=== PATIENT | female | born 2000 | race Caucasian/White ===

== ENCOUNTER 2020-02-06 17:51 | Emergency (ER) | payer OTHER, SELFPAY ==
[2020-02-06 18:47] LABS: Urine Blood NEGATIVE (NEG); Urine Glucose NEGATIVE (NEG); Urine Protein NEGATIVE (NEG); Urine Specific Gravity >1.030 (1.005-1.030)
[2020-02-06] MEDS ORDERED: NA CHLORIDE 0.9% 1,000 ML ONE (18:48)
[2020-02-06] MEDS ORDERED: CEFTRIAXONE/SWI 1gm 1 GM/10 ML SYR ONE (18:48)
[2020-02-06 18:49] LABS: Absolute Lymphocytes (CBC) 3.1 K/uL (0.7-4.9); Basophils % 0.7 % (0-1.3); Hematocrit 40.4 % (36.0-45.0); MPV 7.8 fL (7.6-11.3); RBC Red Blood Cell Count 4.72 M/uL (3.86-4.86)
[2020-02-06 18:57] LABS: Potassium 3.8 mmol/L (3.5-5.1)
--- NOTE | 2020-02-06 19:42 | ER ---
Nurse's Notes [facility] Name: Priscila Parsons Age: 19 yrs Sex: Female : 2000 Arrival Date: 02/06/2020 Time: 17:58 Bed 14 Private MD: Diagnosis: Abdominal tenderness;Amenorrhea, unspecified;Nausea;Urinary tract infection, site not specified Presentation: 02/05 18:12 Chief complaint: Patient states: Period over 1 month late but has had 5 negative test ph at home, reports fatigue, breast tenderness, nausea in mornings and occasional cramping, LMP 12/10. Coronavirus screen: Patient denies a cough. Patient denies shortness of breath or difficulty breathing. Patient denies travel on a cruise ship or to a country the [facility] currently lists as an affected area. Patient denies contact with known and/or suspected case of COVID-19. Proceed with normal triage. Ebola Screen: No symptoms or risks identified at this time. Initial Sepsis Screen: Does the patient meet any 2 criteria? No. Patient's initial sepsis screen is negative. Does the patient have a suspected source of infection? No. Patient's initial sepsis screen is negative. Initial Sepsis Screen: Does the patient meet any 2 criteria?. Risk Assessment: Do you want to hurt yourself or someone else? Patient reports no desire to harm self or others. Onset of symptoms was February 06, 2020. 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 - Social history:: Smoking status: Patient reports the use of cigarette tobacco products, denies chronic smoking, but will smoke occasionally, Reported history of juuling and/or vaping. - Family history:: not pertinent. Screenin:54 Abuse screen: Denies threats or abuse. Nutritional screening: No deficits noted. ll1 Tuberculosis screening: No symptoms or risk factors identified. Fall Risk IV access (20 points). Total Corona Fall Scale indicates No Risk (0-24 pts). Assessment: 18:52 General: Appears in no apparent distress. Behavior is calm, cooperative. Pain: Denies ll1 pain. Neuro: No deficits noted. Cardiovascular: No deficits noted. Respiratory: No deficits noted. GI: Abdomen is flat, Bowel sounds present X 4 quads. Abd is soft and non tender X 4 quads. Reports cramping, nausea. : Reports Late for her period. 19:00 Reassessment: Patient appears in no apparent distress at this time. Patient and/or jb4 family updated on plan of care and expected duration. Pain level reassessed. Patient is alert, oriented x 3, equal unlabored respirations, skin warm/dry/pink. 19:52 Reassessment: Patient appears in no apparent distress at this time. Patient and/or jb4 family updated on plan of care and expected duration. Pain level reassessed. Patient is alert, oriented x 3, equal unlabored respirations, skin warm/dry/pink. D/c pending completion of IV fluids. Vital Signs: 18:12 BP 135 / 95; Pulse 106; Resp 18; Temp 98.4; Pulse Ox 100% on R/A; ph 19:52 BP 117 / 98; Pulse 92; Resp 16; Pulse Ox 100% on R/A; jb4 ED Course: 17:58 Patient arrived in ED. fj1 18:03 Jimy Gloria MD is Attending Physician. adonis 18:08 Samuel Serrato, RN is Primary Nurse. ll1 18:14 Triage completed. ph 18:14 Arm band placed on Patient placed in an exam room, on a stretcher. ph 18:20 Inserted saline lock: 22 gauge in right antecubital area, using aseptic technique. ll1 Blood collected. 18:54 Patient has correct armband on for positive identification. Bed in low position. Call ll1 light in reach. Side rails up X 1. Pulse ox on. NIBP on. 19:41 Mushtaq Espinoza MD is Referral Physician. adonis 19:52 No provider procedures requiring assistance completed. jb4 20:02 IV discontinued, intact, bleeding controlled, No redness/swelling at site. Pressure jb4 dressing applied. Administered Medications: 18:51 Drug: NS 0.9% 1000 ml Route: IV; Rate: 1 bolus; Site: right antecubital; ll1 20:00 Follow up: Response: No adverse reaction; IV Status: Completed infusion; IV Intake: jb4 1000ml 18:52 Drug: Rocephin 1 grams Route: IV; Rate: per protocol; Site: right antecubital; ll1 Intake: 20:00 IV: 1000ml; Total: 1000ml. jb4 Outcome: 19:41 Discharge ordered by . adonis 20:02 Discharged to home ambulatory. jb4 20:02 Condition: stable 20:02 Discharge instructions given to patient, Instructed on discharge instructions, follow up and referral plans. medication usage, Demonstrated understanding of instructions, follow-up care, medications, Prescriptions given X 3. 20:03 Patient left the ED. jb4 Addendum: 02/10/2020 07:20 Addendum: Culture Results: Positive urine culture. No further action required. Bacteria r r5 sensitive to prescribed antibiotic. Signatures: Jimy Gloria MD MD cha Hall, Patricia RN RN George Barber RN RN jb4 Jose Bruno RN RN rr5 Erick Vazquez fj1 Samuel Serrato RN RN ll1
--- NOTE | 2020-02-06 19:42 | EDPHYS ---
Physician Documentation [facility] Name: Priscila Parsons Age: 19 yrs Sex: Female : 2000 Arrival Date: 02/06/2020 Time: 17:58 Bed 14 Private MD: ED Physician Jimy Gloria HPI: 02/05 18:33 This 19 yrs old Female presents to ER via Ambulatory with complaints of adonis Abdominal Pain, POSSIBLITY. 18:33 The patient presents with urinary symptoms, frequency, a desire for a test, adonis period 2 months late, cramping, nausea. Onset: The symptoms/episode began/occurred 3 day(s) ago. Modifying factors: The symptoms are alleviated by nothing, the symptoms are aggravated by nothing. Associated signs and symptoms: The patient has no apparent associated signs or symptoms. Severity of symptoms: At their worst the symptoms were mild, in the emergency department the symptoms are unchanged. The patient is sexually active. The patient's method of control includes nothing. The patient has not experienced similar symptoms in the past. 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 - Social history:: Smoking status: Patient reports the use of cigarette tobacco products, denies chronic smoking, but will smoke occasionally, Reported history of juuling and/or vaping. - Family history:: not pertinent. ROS: 18:33 Constitutional: Negative for fever, chills, and weight loss, Eyes: Negative for injury, adonis pain, redness, and discharge, ENT: Negative for injury, pain, and discharge, Neck: Negative for injury, pain, and swelling, Cardiovascular: Negative for chest pain, palpitations, and edema, Respiratory: Negative for shortness of breath, cough, wheezing, and pleuritic chest pain, Back: Negative for injury and pain, : Negative for injury, bleeding, discharge, and swelling, MS/Extremity: Negative for injury and deformity, Skin: Negative for injury, rash, and discoloration, Neuro: Negative for headache, weakness, numbness, tingling, and seizure, Psych: Negative for depression, anxiety, suicide ideation, homicidal ideation, and hallucinations, Allergy/Immunology: Negative for hives, rash, and allergies, Endocrine: Negative for neck swelling, polydipsia, polyuria, polyphagia, and marked weight changes, Hematologic/Lymphatic: Negative for swollen nodes, abnormal bleeding, and unusual bruising. 18:33 Abdomen/GI: Positive for nausea. 18:33 : Positive for urinary symptoms, urinary frequency, missed period. Exam: 18:33 Constitutional: This is a well developed, well nourished patient who is awake, alert, adonis and in no acute distress. Head/Face: Normocephalic, atraumatic. Eyes: Pupils equal round and reactive to light, extra-ocular motions intact. Lids and lashes normal. Conjunctiva and sclera are non-icteric and not injected. Cornea within normal limits. Periorbital areas with no swelling, redness, or edema. ENT: Nares patent. No nasal discharge, no septal abnormalities noted. Tympanic membranes are normal and external auditory canals are clear. Oropharynx with no redness, swelling, or masses, exudates, or evidence of obstruction, uvula midline. Mucous membranes moist. Neck: Trachea midline, no thyromegaly or masses palpated, and no cervical lymphadenopathy. Supple, full range of motion without nuchal rigidity, or vertebral point tenderness. No Meningismus. Chest/axilla: Normal chest wall appearance and motion. Nontender with no deformity. No lesions are appreciated. Cardiovascular: Regular rate and rhythm with a normal S1 and S2. No gallops, murmurs, or rubs. Normal PMI, no JVD. No pulse deficits. Respiratory: Lungs have equal breath sounds bilaterally, clear to auscultation and percussion. No rales, rhonchi or wheezes noted. No increased work of breathing, no retractions or nasal flaring. Abdomen/GI: Soft, non-tender, with normal bowel sounds. No distension or tympany. No guarding or rebound. No evidence of tenderness throughout. Back: No spinal tenderness. No costovertebral tenderness. Full range of motion. Female : Normal external genitalia. Skin: Warm, dry with normal turgor. Normal color with no rashes, no lesions, and no evidence of cellulitis. MS/ Extremity: Pulses equal, no cyanosis. Neurovascular intact. Full, normal range of motion. Neuro: Awake and alert, GCS 15, oriented to person, place, time, and situation. Cranial nerves II-XII grossly intact. Motor strength 5/5 in all extremities. Sensory grossly intact. Cerebellar exam normal. Normal gait. Psych: Awake, alert, with orientation to person, place and time. Behavior, mood, and affect are within normal limits. Vital Signs: 18:12 BP 135 / 95; Pulse 106; Resp 18; Temp 98.4; Pulse Ox 100% on R/A; ph 19:52 BP 117 / 98; Pulse 92; Resp 16; Pulse Ox 100% on R/A; jb4 MDM: 18:14 Patient medically screened. adonis 19:39 Differential diagnosis: ectopic , ovarian cyst, urinary tract infection. Data adonis reviewed: vital signs, nurses notes, lab test result(s), CBC, electrolytes, urinalysis. Data interpreted: test case developer: not applicable for this patient encounter. rate is 106 beats/min, Pulse oximetry: on room air is 100 %. Counseling: I had a detailed discussion with the patient and/or guardian regarding: the historical points, exam findings, and any diagnostic results supporting the discharge/admit diagnosis, lab results, the need for outpatient follow up, for definitive care, an OB/Gyne specialist. 02/05 18:04 Order name: Abo/rh Typing; Complete Time: 19:39 [facility] 02/05 18:04 Order name: Basic Metabolic Panel; Complete Time: 19:39 [facility] 02/05 18:04 Order name: CBC with Diff; Complete Time: 19:39 [facility] 02/05 18:26 Order name: Test, Serum; Complete Time: 19:39 [facility] 02/05 18:29 Order name: Urine Dipstick--Ancillary (enter results); Complete Time: 19:39 ne 02/05 18:04 Order name: Urine Test (obtain specimen); Complete Time: 18:52 [facility] 02/05 18:04 Order name: IV Saline Lock; Complete Time: 18:11 [facility] 02/05 18:04 Order name: Labs collected and sent; Complete Time: 18:11 [facility] 02/05 18:04 Order name: NPO; Complete Time: 18:11 [facility] 02/05 18:29 Order name: Urine --Ancillary (enter results) ne 02/05 18:32 Order name: Urine Culture [facility] 02/05 18:04 Order name: Urine Dipstick-Ancillary (obtain specimen); Complete Time: 18:52 [facility] Administered Medications: 18:51 Drug: NS 0.9% 1000 ml Route: IV; Rate: 1 bolus; Site: right antecubital; ll1 20:00 Follow up: Response: No adverse reaction; IV Status: Completed infusion; IV Intake: jb4 1000ml 18:52 Drug: Rocephin 1 grams Route: IV; Rate: per protocol; Site: right antecubital; ll1 Disposition: 02/06/20 19:41 Discharged to Home. Impression: Abdominal tenderness, Amenorrhea, unspecified, Nausea, Urinary tract infection, site not specified. - Condition is Stable. - Discharge Instructions: Abdominal Pain, Adult, Nausea and Vomiting, Adult, Nausea, Adult, Urinary Tract Infection, Adult, Nausea and Vomiting, Adult, Rzrb-bc-Cocb, Urinary Tract Infection, Adult, Snxw-jy-Nkli, Abdominal Pain, Adult, Dgse-co-Havv, Nausea, Adult, Ugli-wt-Kqcs, Primary Amenorrhea. - Prescriptions for Vitamin 27- 0.8 mg Oral Tablet - take 1 tablet by ORAL route once daily; 30 tablet. Zofran 4 mg Oral Tablet - take 1 tablet by ORAL route every 12 hours As needed; 10 tablet. Macrobid 100 mg Oral Capsule - take 1 capsule by ORAL route every 12 hours for 7 days; 14 capsule. - Medication Reconciliation Form, Thank You Letter, Antibiotic Education, Prescription Opioid Use form. - Follow up: Private Physician; When: 2 - 3 days; Reason: Recheck today's complaints, Continuance of care, Re-evaluation by your physician. Follow up: Mushtaq Espinoza; When: 2 - 3 days; Reason: Recheck today's complaints, Continuance of care, Re-evaluation by your physician. - Problem is new. - Symptoms have improved. Signatures: Dispatcher [employer] Jimy Nagel MD MD cha Hall, Patricia RN RN George Noel RN RN jb4 Samuel Serrato RN RN ll1 Corrections: (The following items were deleted from the chart) 18:29 18:04 QUANTITATIVE HCG+C.LAB.BRZ ordered. EDMS EDMS 20:03 19:41 02/06/2020 19:41 Discharged to Home. Impression: Abdominal tenderness; jb4 Amenorrhea, unspecified; Nausea; Urinary tract infection, site not specified. Condition is Stable. Discharge Instructions: Abdominal Pain, Adult, Nausea and Vomiting, Adult, Nausea, Adult, Nausea and Vomiting, Adult, Upxx-fy-Ehrg, Abdominal Pain, Adult, Zehd-dw-Tszl, Nausea, Adult, Pybq-mf-Vypl, Primary Amenorrhea. Prescriptions for Vitamin 27-0.8 mg Oral Tablet - take 1 tablet by ORAL route once daily; 30 tablet, Zofran 4 mg Oral Tablet - take 1 tablet by ORAL route every 12 hours As needed; 10 tablet. and Forms are Medication Reconciliation Form, Thank You Letter, Antibiotic Education, Prescription Opioid Use. Follow up: Private Physician; When: 2 - 3 days; Reason: Recheck today's complaints, Continuance of care, Re-evaluation by your physician. Follow up: Mushtaq Espinoza; When: 2 - 3 days; Reason: Recheck today's complaints, Continuance of care, Re-evaluation by your physician. Problem is new. Symptoms have improved. adonis
[2020-02-06 20:22] VITALS: TEMP 98.4; O2SAT 100
[2020-02-06 20:23] VITALS: BP 117/98
== END 2020-02-06 20:03 | disposition home or self-care (01) ==
LOC: ER 17:51
DX: N91.2 Amenorrhea, unspecified (principal); N39.0 Urinary tract infection, site not specified; R10.819 Abdominal tenderness, unspecified site; Z72.0 Tobacco use
CPT/HCPCS: 36415; 80048; 81003; 81025; 84703; 85025; 86900; 86901; 87077; 87086; 87088; 87186; 96361; 96374; 99284; J0696; J7030

== ENCOUNTER 2020-02-14 20:16 | Emergency (ER) | payer SELFPAY ==
[2020-02-14 21:26] LABS: Absolute Lymphocytes (CBC) 3.1 K/uL (0.7-4.9); Basophils % 0.7 % (0-1.3); Hematocrit 39.5 % (36.0-45.0); Lymphocytes % 33.9 % (15.3-44.8); MPV 7.5 fL (7.6-11.3); RBC Red Blood Cell Count 4.68 M/uL (3.86-4.86)
[2020-02-14 21:57] LABS: ALT/SGPT 81 U/L (12-78); Albumin 3.7 g/dL (3.4-5.0); Alkaline Phosphatase 97 U/L (45-117); BUN Blood Urea Nitrogen 15 mg/dL (7-18); Bicarbonate 29 mmol/L (21-32); Bilirubin Direct < 0.1 mg/dL (0-0.2); Bilirubin Total 0.4 mg/dL (0.2-1.0); Glucose Level 102 mg/dL (74-106); Lipase 75 U/L (73-393); Protein, Total 7.7 g/dL (6.4-8.2); Sodium Level 141 mmol/L (136-145)
[2020-02-14 21:58] LABS: AST/SGOT 51 U/L (15-37); Potassium 4.1 mmol/L (3.5-5.1)
[2020-02-14 22:02] LABS: Urine Blood NEGATIVE (NEG); Urine Glucose NEGATIVE (NEG); Urine Protein NEGATIVE (NEG); Urine Specific Gravity 1.025 (1.005-1.030); Urine pH 6.5 (5.0-7.0)
--- NOTE | 2020-02-14 23:42 | EDPHYS ---
Physician Documentation [facility] Name: Priscila Parsons Age: 19 yrs Sex: Female : 2000 Arrival Date: 02/14/2020 Time: 20:18 Bed 18 Private MD: ED Physician Candace Bird HPI: 02/13 21:03 This 19 yrs old Female presents to ER via Ambulatory with complaints of jmm Abdominal Pain. 21:03 The patient presents with abdominal pain. Onset: The symptoms/episode began/occurred jmm gradually, 1 week(s) ago. The symptoms radiate to pelvis. The symptoms are described as achy. Modifying factors: The symptoms are alleviated by remaining still, the symptoms are aggravated by movement. This is a 19 year old female with no chronic medical conditions that presents to the ED with complaints of lower abdominal pain and left flank pain. Patient was evaluated 1 week ago but did not take prescribed abx. Patient states her pain intensified today. . 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 - Social history:: Smoking status: Patient reports the use of cigarette tobacco products, denies chronic smoking, but will smoke occasionally, Reported history of juuling and/or vaping. Patient/guardian denies using alcohol, street drugs. ROS: 21:03 Constitutional: Negative for fever, chills, and weight loss, Cardiovascular: Negative jmm for chest pain, palpitations, and edema, Respiratory: Negative for shortness of breath, cough, wheezing, and pleuritic chest pain. 21:03 Abdomen/GI: Positive for abdominal pain. 21:03 All other systems are negative. Exam: 21:03 Constitutional: This is a well developed, well nourished patient who is awake, alert, jmm and in no acute distress. Head/Face: atraumatic. Eyes: EOMI, no conjunctival erythema appreciated ENT: Moist Mucus Membranes Neck: Trachea midline, Supple Chest/axilla: Normal chest wall appearance and motion. Cardiovascular: Regular rate and rhythm. No edema appreciated Respiratory: Normal respirations, no respiratory distress appreciated 21:03 Back: Normal ROM Skin: General appearance color normal MS/ Extremity: Moves all extremities, no obvious deformities appreciated, no edema noted to the lower extremities Neuro: Awake and alert, normal gait Psych: Behavior is normal, Mood is normal, Patient is cooperative and pleasant 21:03 Abdomen/GI: Inspection: abdomen appears normal, Bowel sounds: normal, Palpation: soft, mild abdominal tenderness, in the suprapubic area. Vital Signs: 20:21 BP 122 / 98; Pulse 102; Resp 17; Temp 99.2; Pulse Ox 100% ; Pain 0/10; ll1 22:06 BP 129 / 91; Pulse 95; Resp 18; Pulse Ox 99% on R/A; wh 23:30 BP 144 / 76; Pulse 93; Resp 18; Pulse Ox 98% on R/A; wh MDM: 21:[address] [facility] 21:05 Data reviewed: vital signs, nurses notes. Counseling: I had a detailed discussion with [facility] the patient and/or guardian regarding:. 23:40 Data reviewed: lab test result(s), radiologic studies, CT scan. Counseling: I had a [facility] detailed discussion with the patient and/or guardian regarding: the historical points, exam findings, and any diagnostic results supporting the discharge/admit diagnosis, lab results, radiology results, the need for outpatient follow up, to return to the emergency department if symptoms worsen or persist or if there are any questions or concerns that arise at home. ED course: Imaging studies negative. Previous urine culture reviewed, Patient is alert and non toxic in appearance in the ED. Patient is advised to follow up with pcp and otherwise given strict return precautions. Patient understood and agrees with the plan of care. . 02/13 21:02 Order name: Basic Metabolic Panel; Complete Time: 22:01 [facility] 02/13 21: Order name: CBC with Diff; Complete Time: 21:50 [facility] 02/13 21: Order name: Hepatic Function; Complete Time: 22:01 [facility] 02/13 21:02 Order name: Lipase; Complete Time: 22:01 [facility] 02/13 21:21 Order name: Urine Dipstick--Ancillary (enter results); Complete Time: 22:03 [facility] 02/13 21:21 Order name: Urine --Ancillary (enter results); Complete Time: 22:03 [facility] 02/13 21:02 Order name: IV Saline Lock; Complete Time: 21:20 [facility] 02/13 21:02 Order name: Labs collected and sent; Complete Time: 21:20 [facility] 02/13 21:02 Order name: CT Abd/Pelvis - IV Contrast Only [facility] 02/13 21:02 Order name: Urine Dipstick-Ancillary (obtain specimen); Complete Time: 21:20 [facility] 02/13 21:02 Order name: Urine Test (obtain specimen); Complete Time: 21:20 [facility] Administered Medications: No medications were administered Disposition: 02/14 03:53 Co-signature as Attending Physician, Candace Bird MD. ma2 Disposition: 02/14/20 23:41 Discharged to Home. Impression: Abdominal and pelvic pain, Urinary tract infection, site not specified. - Condition is Stable. - Discharge Instructions: Urinary Tract Infection, Adult. - Prescriptions for Cipro 500 mg Oral Tablet - take 1 tablet by ORAL route every 12 hours for 7 days; 14 tablet. - Medication Reconciliation Form, Thank You Letter, Antibiotic Education, Prescription Opioid Use, Work release form form. - Follow up: Private Physician; When: 2 - 3 days; Reason: Recheck today's complaints, Continuance of care, Re-evaluation by your physician. Signatures: Dispatcher [employer] EDMS Jesse Shaikh PA PA jmm [place], Winsy Candace Bird MD MD ma2 Samuel Serrato RN RN ll1 Corrections: (The following items were deleted from the chart) 00:08 02/13 23:41 02/14/2020 23:41 Discharged to Home. Impression: Abdominal and pelvic pain; wh Urinary tract infection, site not specified. Condition is Stable. Forms are Medication Reconciliation Form, Thank You Letter, Antibiotic Education, Prescription Opioid Use. Follow up: Private Physician; When: 2 - 3 days; Reason: Recheck today's complaints, Continuance of care, Re-evaluation by your physician. [facility]
--- NOTE | 2020-02-14 23:42 | ER ---
Nurse's Notes [facility] Name: Priscila Parsons Age: 19 yrs Sex: Female : 2000 Arrival Date: 02/14/2020 Time: 20:18 Bed 18 Private MD: Diagnosis: Abdominal and pelvic pain;Urinary tract infection, site not specified Presentation: 02/13 20:21 Chief complaint: Patient states: Left sided abdominal pain this morning, had to leave [facility] work due to pain. + nausea, no fever. Coronavirus screen: Patient denies a cough. Patient denies shortness of breath or difficulty breathing. Patient denies measured and/or subjective temperature greater than 100.4F prior to today's visit. Patient denies travel on a cruise ship or to a country the [facility] currently lists as an affected area. Patient denies contact with known and/or suspected case of COVID-19. Proceed with normal triage. Ebola Screen: Patient denies travel to an Ebola-affected area in the 21 days before illness onset. Initial Sepsis Screen: Does the patient meet any 2 criteria? HR > 90 bpm. No. Patient's initial sepsis screen is negative. Risk Assessment: Do you want to hurt yourself or someone else? Patient reports no desire to harm self or others. Onset of symptoms was February 14, 2020. 20:21 Method Of Arrival: Ambulatory 1 20:21 Acuity: DARREN 3 ll1 21:00 Initial Sepsis Screen: Does the patient meet any 2 criteria? Does the patient have a suspected source of infection? Yes: Dysuria/Frequency/Urgency/UTI. 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 - Social history:: Smoking status: Patient reports the use of cigarette tobacco products, denies chronic smoking, but will smoke occasionally, Reported history of juuling and/or vaping. Patient/guardian denies using alcohol, street drugs. Screenin:00 Abuse screen: Denies threats or abuse. Denies injuries from another. Nutritional screening: No deficits noted. Tuberculosis screening: No symptoms or risk factors identified. Fall Risk None identified. Assessment: 20:30 General: Appears in no apparent distress. Behavior is calm, cooperative, appropriate wh for age. Pain: Complains of pain in suprapubic area Pain radiates to pelvis Pain currently is 4 out of 10 on a pain scale. Neuro: Level of Consciousness is awake, alert, obeys commands, Oriented to person, place, time, situation, Appropriate for age. Cardiovascular: Heart tones S1 S2. Respiratory: Airway is patent Respiratory effort is even, unlabored, Respiratory pattern is regular, symmetrical, Breath sounds are clear bilaterally. GI: Abdomen is flat, non-distended, Bowel sounds present X 4 quads. Abd is soft and non tender X 4 quads. Reports lower abdominal pain. : No signs and/or symptoms were reported regarding the genitourinary system. EENT: No signs and/or symptoms were reported regarding the EENT system. Derm: Skin is intact, is healthy with good turgor, Skin is pink, warm \T\ dry. normal. Musculoskeletal: Circulation, motion, and sensation intact. 22:00 Reassessment: Patient appears in no apparent distress at this time. No changes from previously documented assessment. Patient and/or family updated on plan of care and expected duration. Pain level reassessed. Patient is alert, oriented x 3, equal unlabored respirations, skin warm/dry/pink. 23:00 Reassessment: Patient appears in no apparent distress at this time. No changes from previously documented assessment. Patient and/or family updated on plan of care and expected duration. Pain level reassessed. Patient is alert, oriented x 3, equal unlabored respirations, skin warm/dry/pink. 02/14 00:05 Reassessment: Patient appears in no apparent distress at this time. No changes from previously documented assessment. Patient and/or family updated on plan of care and expected duration. Pain level reassessed. Patient is alert, oriented x 3, equal unlabored respirations, skin warm/dry/pink. Vital Signs: 02/13 20:21 BP 122 / 98; Pulse 102; Resp 17; Temp 99.2; Pulse Ox 100% ; Pain 0/10; ll1 22:06 BP 129 / 91; Pulse 95; Resp 18; Pulse Ox 99% on R/A; wh 23:30 BP 144 / 76; Pulse 93; Resp 18; Pulse Ox 98% on R/A; ED Course: 20:18 Patient arrived in ED. cl3 20:22 Triage completed. ll1 20:23 Arm band placed on Patient placed in an exam room, on a stretcher. 1 20:24 Ivan Kim is Primary Nurse. 20:31 Jesse Shaikh PA is PHCP. [facility] 20:31 Candace Bird MD is Attending Physician. [facility] 21:00 Patient has correct armband on for positive identification. Bed in low position. Call light in reach. Side rails up X 1. Pulse ox on. NIBP on. 21:00 Inserted saline lock: 22 gauge in right antecubital area, using aseptic technique. Blood collected. 22:49 CT Abd/Pelvis - IV Contrast Only In Process Unspecified. EDMS 02/14 00:08 No provider procedures requiring assistance completed. IV discontinued, intact, bleeding controlled, No redness/swelling at site. Administered Medications: No medications were administered Outcome: 02/13 23:41 Discharge ordered by . [facility] 02/14 00:08 Discharged to home ambulatory. Condition: stable Discharge instructions given to patient, Instructed on discharge instructions, follow up and referral plans. medication usage, POC Demonstrated understanding of instructions, follow-up care, medications, POC Prescriptions given X 1. 00:08 Patient left the ED. Signatures: Dispatcher [employer] EDDC Jesse Shaikh PA PA [facility] Ivan Kim Nicolas Serrato cl3 Samuel Serrato, RN RN ll1
[2020-02-15 00:32] VITALS: TEMP 99.2
[2020-02-15 00:42] VITALS: BP 144/76; O2SAT 98
--- NOTE | 2020-02-16 09:06 | RAD REPORT ---
EXAM DESCRIPTION: CT ABDOMEN PELVIS WITH IV CONTRAST CLINICAL HISTORY: Left flank pain. COMPARISON: None. TECHNIQUE: CT scan of the abdomen and pelvis was performed with IV contrast. This exam was performed according to our departmental dose-optimization program, which includes automated exposure control, adjustment of the mA and/or kV according to patient size and/or use of iterative reconstruction techn ique. FINDINGS: The lung bases are clear. No pleural or pericardial effusions. There is no hiatal hernia. The liver, spleen, pancreas, gallbladder, adrenal glands, and kidneys are unremarkable. No urinary st ones are seen. The pelvic organs are also unremarkable. The stomach and duodenum are unremarkable. No small bowel obstruction. The appendix is normal. No genet dence of acute diverticulitis. No adenopathy, free fluid, or free air is identified. The aorta is normal caliber. No acute bony findings are seen. There is no pathologic body wall hernia . IMPRESSION: No acute abdominal or pelvic findings. Electronically signed by: Francisco Cool MD 02/14/2020 11:00 PM CDT Due to temporary technical issues with the PACS/Fluency reporting system, reports are being signed by the in house radiologist without review as a courtesy to ensure prompt reporting. The interpreting r adiologist is fully responsible for the content of the report.
== END 2020-02-15 00:08 | disposition home or self-care (01) ==
LOC: ER 20:16
DX: N39.0 Urinary tract infection, site not specified (principal); F17.210 Nicotine dependence, cigarettes, uncomplicated
CPT/HCPCS: 36415; 74177; 80048; 80076; 81003; 81025; 83690; 85025; 99284; Q9967

== ENCOUNTER 2024-07-12 18:49 | Emergency (ER) | payer SELFPAY ==
[2024-07-12 19:44] LABS: Absolute Lymphocytes (CBC) 2.8 K/uL (0.7-4.9); Absolute Monocytes 0.7 K/uL (0.1-1.3); Absolute Neutrophil 5.9 K/uL (1.8-8.0); Basophils % 0.5 % (0-1.3); Eosinophils % 0.5 % (0-4.4); Hematocrit 35.4 % (36.0-45.0); Hemoglobin 12.2 g/dL (12.0-15.0); Lymphocytes % 29.9 % (15.3-44.8); MCH 29.2 pg (27.0-35.0); MCHC 34.6 g/dL (32.0-36.0); MCV 84.2 fL (80-100); MPV 7.2 fL (7.6-11.3); Neutrophils % 62.1 % (41.7-73.7); Nucleated Red Blood Cells % 0.1 % (0-0); Platelets 346 thou/uL (152-406); Red Cell Distribution Width 14.1 % (12.1-15.2)
[2024-07-12 19:46] LABS: Specific Gravity 1.029 (1.005-1.030)
[2024-07-12 19:47] LABS: Specific Gravity 1.029 (1.005-1.030); Urine Bacteria None Seen /HPF (<20); Urine Bilirubin NEGATIVE (Negative); Urine Blood Negative (Negative); Urine Clarity Extremely Turbid (Clear); Urine Color Yellow (Yellow); Urine Culture Reflex Order NOT NEEDED; Urine Glucose NEGATIVE (Negative); Urine Ketones NEGATIVE (Negative); Urine Microscopic Reflex YN ORDER UMIC; Urine Mucus 3+ /HPF (None Seen); Urine Nitrite NEGATIVE (Negative); Urine Protein TRACE (Negative); Urine RBC <5 /HPF (None Seen); Urine Urobilinogen 1+ (Normal); Urine WBC Clump Rare /HPF (None Seen); Urine Yeast (Budding) Trace /HPF (None Seen); Urine pH 6.5 (5.0-7.0)
[2024-07-12 20:06] LABS: Anion Gap 8.6 mEq/L (5.0-15.0); Potassium 3.6 mEq/L (3.5-5.1)
--- NOTE | 2024-07-12 20:11 | RAD REPORT ---
EXAMINATION: US FIRST TRIMESTER TRANSVAGINAL WITH DOPPLER CLINICAL INDICATION: with pelvic pain TECHNIQUE: Real-time obstetrical ultrasonography of the maternal pelvis and first trimester was performed transvaginally. Color and spectral Doppler evaluation of the ovaries was performed. COMPARISON: No prior exam. FINDINGS: The uterus measures 10 x 6 x 7 cm. pole is present within a gestational sac measuring 1.8 cm. T his lies within the endometrium. Cardiac activity 174 bpm. Very small subchorionic hemorrhage. Right ovary normal in size and echotexture Left ovary normal in size and echotexture Right and left adnexa unremarkable No significant free fluid IMPRESSION: Single live intrauterine with an estimated gestational age 8 weeks 3 days MICHELLE 02/18/2025
--- NOTE | 2024-07-12 20:25 | ER ---
Nurse[facility] Name: Priscila Parsons Age: 23 yrs Sex: Female : 2000 Arrival Date: 07/12/2024 Time: 18:49 Bed 12 Private MD: Diagnosis: Abdominal pain, Generalized;8 weeks gestation of Presentation: 07/12 19:13 Chief complaint: Abdominal cramping that started this afternoon. Pt is approx 8 weeks hb , LMP 05/12. Coronavirus screen: At this time, the client does not indicate any symptoms associated with coronavirus-19. Ebola Screen: No symptoms or risks identified at this time. Initial Sepsis Screen: Does the patient meet any 2 criteria? No. Patient's initial sepsis screen is negative. Does the patient have a suspected source of infection? No. Patient's initial sepsis screen is negative. Risk Assessment: Do you want to hurt yourself or someone else? Patient reports no desire to harm self or others. Onset of symptoms was July 12, 2024. 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 - Infectious Disease History:: Denies. - Social history:: Smoking status: Patient/guardian denies using tobacco, Stopped _ months ago 1. Screenin:39 [facility] ED Fall Risk Assessment (Adult) History of falling in the last 3 months, mt4 including since admission No falls in past 3 months (0 pts) Confusion or Disorientation No (0 pts) Intoxicated or Sedated No (0 pts) Impaired Gait No (0 pts) Mobility Assist Device Used No (0 pt) Altered Elimination No (0 pt) Score/Fall Risk Level 0 - 2 = Low Risk. Abuse screen: Denies injuries from another. Nutritional screening: No deficits noted. Tuberculosis screening: No symptoms or risk factors identified. Exposure risk/Travel Screening: None identified. Assessment: 19:39 General: Appears in no apparent distress. distressed, comfortable, Behavior is calm, mt4 cooperative, appropriate for age. Pain: Complains of pain in abdomen Pain currently is 1 out of 10 on a pain scale. Quality of pain is described as aching, crampy, Pain began suddenly, Is intermittent. Neuro: Level of Consciousness is awake, alert, obeys commands, Oriented to person, place, time, situation, Moves all extremities. Gait is steady, Speech is normal, Facial symmetry appears normal. Cardiovascular: Capillary refill. Respiratory: Airway is patent Trachea midline Respiratory effort is even, unlabored, Respiratory pattern is regular, symmetrical. GI: Abdomen is round 8 wks Bowel sounds present X 4 quads. Abdomen is tender to palpation in abdomen diffusely Reports Patient currently denies. GI: Patient currently denies nausea, vomiting. : Denies burning with urination. Musculoskeletal: Capillary refill < 3 seconds, Range of motion: intact in all extremities. 20:58 General: Appears in no apparent distress. distressed, comfortable, Behavior is calm, mt4 cooperative, appropriate for age. Neuro: Level of Consciousness is awake, alert, obeys commands, Oriented to person, place, time, situation, Gait is steady. Vital Signs: 19:13 BP 141 / 88; Pulse 94; Resp 16; Temp 99.5(O); Pulse Ox 100% on R/A; Weight 99.79 kg; hb Height 5 ft. 3 in. ; Pain 5/10; 19:39 BP 129 / 85; Pulse 88; Resp 16 S; Temp 99(O); Pulse Ox 100% on R/A; Pain 1/10; mt4 20:58 BP 116 / 83; Pulse 85; Resp 18; Pulse Ox 99% on R/A; Pain 0/10; mt4 19:13 Body Mass Index 38.97 (99.79 kg, 160.02 cm) hb 19:13 Pain Scale: Adult hb 19:39 Pain Scale: Adult mt4 20:58 Pain Scale: Adult mt4 Anali Coma Score: 19:39 Eye Response: spontaneous(4). Motor Response: obeys commands(6). Verbal Response: mt4 oriented(5). Total: 15. ED Course: 18:52 Patient arrived in ED. mr 18:52 [facility] Waite [facility]C [facility] kb 18:52 Jimy Gloria MD is Attending Physician. kb 19:14 Triage completed. hb 19:15 Arm band placed on. hb 19:39 Patient has correct armband on for positive identification. Bed in low position. Call mt4 light in reach. Side rails up X 1. Provided Education on: labs. Client placed on continuous cardiac and pulse oximetry monitoring. NIBP monitoring applied. Door closed. Lights dimmed. Warm blanket given. Pillow given. Verbal reassurance given. Assisted to bathroom. 19:39 No provider procedures requiring assistance completed. Inserted saline lock: 20 gauge mt4 in right forearm, using aseptic technique. Blood collected. Flushed with 10 mL NS. 20:02 US Transvaginal Ob In Process Unspecified. EDMS 20:58 IV discontinued, intact, bleeding controlled, No redness/swelling at site. Pressure mt4 dressing applied. Patient maintains SpO2 saturation greater than 95% on room air. Administered Medications: No medications were administered Medication: 19:39 VIS not applicable for this client. mt4 Outcome: 20:24 Discharge ordered by MD. kb 20:58 Discharged to home ambulatory, mt4 20:58 Condition: stable 20:58 Discharge instructions given to patient, Instructed on discharge instructions, follow up and referral plans. Demonstrated understanding of instructions, follow-up care, medications, Prescriptions given X 21:00 Patient left the ED. mt4 Signatures: Dispatcher [employer] EDAR Shani Waite, LOREE COMPENSATOR-Viviane Santos, Reg Reg mr CarvalhoRosa, RN BARBI Parker Means RN RN rs5 Alphonse Holden RN RN mt4 Corrections: (The following items were deleted from the chart) 19:30 19:10 General: Appears in no apparent distress. uncomfortable, Behavior is calm, rs5 cooperative, rs5 19:30 19:10 Pain: Denies pain. rs5 rs5 19:30 19:10 Neuro: Level of Consciousness is awake, alert, obeys commands, Oriented to rs5 person, place, time, situation, rs5 19:30 19:10 Cardiovascular: Patient's skin is warm and dry. rs5 rs5 19:30 19:10 Respiratory: Airway is patent Respiratory effort is even, unlabored, Respiratory rs5 pattern is regular, symmetrical, rs5 19:30 19:10 GI: Abdomen is round non-distended, Bowel sounds present X 4 quads. Abd is soft rs5 and non tender X 4 quads. rs5 : 19:10 : Reports burning with urination, rs5 rs5 : 19:10 EENT: No signs and/or symptoms were reported regarding the EENT system. rs5 rs5 : 19:10 Derm: Skin is intact, Skin is pink, warm \T\ dry. rs5 rs5 : 19:10 Musculoskeletal: Range of motion: intact in all extremities, rs5 rs5
--- NOTE | 2024-07-12 20:25 | EDPHYS ---
Physician Documentation [facility] Name: Priscila Parsons Age: 23 yrs Sex: Female : 2000 Arrival Date: 07/12/2024 Time: 18:49 Bed 12 Private MD: ED Physician Jimy Gloria HPI: 07/12 19:03 This 23 yrs old Female presents to ER via Unassigned with complaints of 8wks , kb Abdominal Cramping. 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 kb States she has had intermittent pain for 1-2 weeks, but it was worse tonight. Denies n/v/d/f, urinary symptoms. LMP 05/12/24. 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 - Infectious Disease History:: Denies. - Social history:: Smoking status: Patient/guardian denies using tobacco, Stopped _ months ago 1. ROS: 19:03 Constitutional: As per HPI kb Exam: 19:03 Constitutional: This is a well developed, well nourished patient who is awake, alert, kb and in no acute distress. Head/Face: Normocephalic, atraumatic. ENT: Moist Mucous membranes Cardiovascular: Regular rate Respiratory: Respirations even and unlabored. No increased work of breathing. Talking in full sentences Skin: Warm, dry with normal turgor. Normal color. MS/ Extremity: Pulses equal, no cyanosis. Neurovascular intact. Full, normal range of motion. Neuro: Awake and alert, GCS 15, oriented to person, place, time, and situation. 19:03 Abdomen/GI: Inspection: obese Bowel sounds: normal, Palpation: abdomen is soft and non-tender, in all quadrants, Vital Signs: 19:13 BP 141 / 88; Pulse 94; Resp 16; Temp 99.5(O); Pulse Ox 100% on R/A; Weight 99.79 kg; hb Height 5 ft. 3 in. ; Pain 5/10; 19:39 BP 129 / 85; Pulse 88; Resp 16 S; Temp 99(O); Pulse Ox 100% on R/A; Pain 1/10; mt4 20:58 BP 116 / 83; Pulse 85; Resp 18; Pulse Ox 99% on R/A; Pain 0/10; mt4 19:13 Body Mass Index 38.97 (99.79 kg, 160.02 cm) hb 19:13 Pain Scale: Adult hb 19:39 Pain Scale: Adult mt4 20:58 Pain Scale: Adult mt4 Anali Coma Score: 19:39 Eye Response: spontaneous(4). Motor Response: obeys commands(6). Verbal Response: mt4 oriented(5). Total: 15. MDM: 18:52 Medical Screening Exam initiated kb 20:23 Differential diagnosis: threatened , ectopic, ovarian cyst. Data reviewed: kb vital signs, nurses notes. Counseling: I had a detailed discussion with the patient and/or guardian regarding the historical points, exam findings, and any diagnostic results supporting the discharge/admit diagnosis, lab results, radiology results, the need for outpatient follow up, an OB/Gyne specialist, to return to the emergency department if symptoms worsen or persist or if there are any questions or concerns that arise at home. 07/12 18:53 Order name: Abo/rh Typing; Complete Time: 20:10 kb 07/12 18:53 Order name: Basic Metabolic Panel; Complete Time: 20:23 kb 07/12 18:53 Order name: CBC with Diff; Complete Time: 19:52 kb 07/12 18:53 Order name: Test, Urine; Complete Time: 19:52 kb 07/12 18:53 Order name: Quantitative Hcg; Complete Time: 20:23 kb 07/12 18:53 Order name: Urinalysis w/ reflexes; Complete Time: 19:52 kb 07/12 18:53 Order name: US Transvaginal Ob; Complete Time: 20:17 kb 07/12 18:53 Order name: IV Saline Lock; Complete Time: 19:38 kb 07/12 18:53 Order name: Labs collected and sent; Complete Time: 19:39 kb 07/12 18:53 Order name: NPO; Complete Time: 19:38 kb Administered Medications: No medications were administered Disposition Summary: 07/12/24 20:24 Discharge Ordered Notes: Location: Home kb Condition: Stable kb Diagnosis - Abdominal pain, Generalized kb - 8 weeks gestation of kb Followup: kb - With: Emergency Department - When: As needed - Reason: Worsening of condition Followup: kb - With: Private Physician - When: 2 - 3 days - Reason: Recheck today's complaints, Continuance of care, Re-evaluation by your physician Discharge Instructions: - Discharge Summary Sheet kb - Abdominal Pain During , [id number] kb Forms: - Medication Reconciliation Form kb - Antibiotic Education kb - Prescription Opioid Use kb - Patient Portal Instructions kb - Leadership Thank You Letter kb Addendum: 07/15/2024 12:41 Co-signature as Attending Physician, Jimy Gloria MD I agree with the assessment and c limon plan of care. Signatures: Dispatcher [employer] Shani Hanson, SLICING MACHINE OPERATOR-C SLICING MACHINE OPERATOR-Jimy Melgar MD MD cha Baxter, Heather, RN RN
[2024-07-12 21:28] VITALS: TEMP 99
[2024-07-12 21:29] VITALS: BP 116/83; O2SAT 99
== END 2024-07-12 21:00 | disposition home or self-care (01) ==
LOC: ER 18:49
DX: O26.891 Other specified pregnancy related conditions, first trimester (principal); R10.84 Generalized abdominal pain; Z3A.08 8 weeks gestation of pregnancy
CPT/HCPCS: 36415; 76817; 80048; 81001; 81025; 84702; 85025; 86900; 86901; 99284